=== PATIENT | female | born 1975 | race Caucasian/White ===

== ENCOUNTER 2024-01-09 01:00 | Emergency (ER) | payer BC, SELFPAY ==
--- NOTE | ~2024-01-09 | XR_ITS ---
EXAMINATION: XR SHOULDER, RIGHT CLINICAL INFORMATION: Atraumatic pain COMPARISON: None available. TECHNIQUE: AP, Grashey, transscapular views of the right shoulder. FINDINGS: This dystrophic amorphous calcification is present in the expected location of the distal supraspinatus tendon adjacent to the greater tuberosity. The humeral and acromioclavicular joint space and alignment are normal in appearance. Normal appearance of visualized right ribs and lung. XR/XR shoulder RT min 2V IMPRESSION: Chronic calcific tendinosis of the supraspinatus tendon of the right shoulder rotator cuff. Electronically signed by: Cheo Tavera MD 01/09/2024 02:41 AM EDT
--- NOTE | 2024-01-09 01:30 | ED_ITS ---
HPI - Extremity Problem General Chief complaint: Extremity Problem Stated complaint: shoulder pain Time Seen by Provider: 01/09/24 01:28 Source: patient Mode of arrival: ambulatory Limitations: no limitations History of Present Illness ED Provider: allison HPI Narrative: Patient with no history of arthritis or any injury to the right shoulder does not remember any lifting heavy stuff noticed pain in the right shoulder a month ago unable to raise her hand because of pain seen In the urgent care advised rotator cuff exercises patient comes here as pain is still not getting better Related Data Previous Rx's ?Medication ?Instructions ?Recorded oxycodone 5 mg tablet 5 mg PO Q6H PRN pain #20 tabs 01/09/24 prednisone 20 mg tablet 40 mg (2 x 20 mg) PO DAILY #10 tabs 01/09/24 Allergies Allergy/AdvReac Type Severity Reaction Status Date / Time No Known Allergies Allergy Verified 01/09/24 01:39 [No Known Allergies*] Review of Systems 2 Review of Systems: Yes all other systems are reviewed and are negative [facility] Social History Social History Advance Directives: No Advance Directives Information Provided: No Physical Exam 2 Vital Signs: Vital Signs: Last Vital Signs Temp 98.4 F 01/09/24 01:37 Pulse 74 01/09/24 01:37 Resp 16 01/09/24 01:37 BP 122/74 01/09/24 01:37 Pulse Ox 97 01/09/24 01:37 O2 Del Method Room Air 01/09/24 01:37 BMI result Body Mass Index 32.6 Appearance: Alert. Oriented X3. No acute distress. Neck: Normal inspection. Neck supple. CVS: Normal heart rate and rhythm. Pulses normal. Respiratory: No respiratory distress. Equal air entry bilateral, Abdomen: Soft and nontender. Bowel sounds are present, Skin: Skin warm and dry. Normal skin color. Normal skin turgor. Extremities: No lower extremity edema. No calf tenderness right arm diffuse tenderness. Acromial area and rotator cuff muscles painful to abduct painful to do internal rotation or external rotation of the right shoulder Neuro: Oriented X 3. No motor deficit. Extrem: Shoulder/upper arm images: 1. Subacromial tenderness no erythema neurovascular intact painful external rotation and abduction of the right shoulder Medical Decision Making Medical Decision Making MDM Narrative: Patient's right shoulder pain for about a month clinically patient has a rotator cuff tendinitis will give a sling x-ray negative for any fracture plan to see orthopedic Differential Diagnosis Differential Diagnoses: The differential diagnosis associated with the presentation includes Impingement syndrome/rotator cuff tendinitis Independent Interpretation I performed an independent interpretation of an: Plain X-Ray Interpretation: Calcium deposits in the tendons Discharge Plan Discharge Clinical Impression: Right rotator cuff tendinitis Patient Disposition: Home, Self-Care Instructions: Rotator Cuff Tendinitis (ED), Shoulder Manipulation (DC) Additional Instructions: Wear sling for support Pain medication and prednisone as prescribed Follow with Orthopedics for further evaluation Prescriptions: New prednisone 20 mg tablet 40 mg PO DAILY Qty: 10 0RF oxycodone 5 mg tablet 5 mg PO Q6H PRN (Reason: pain) Qty: 20 0RF Rx Instructions: Partial Fill upon patient request. Stand Alone Forms: Work/School Release Print Language: Surinamese
[2024-01-09 01:37] VITALS: BP 122/74; PULSE 74; RESP 16; TEMP 36.9; O2SAT 97; BMI 32.6
--- OUTSIDE RECORDS SUMMARY | 2024-01-09 01:40 | XMS_ITS | Continuity of Care Document ---
Author Organization [facility] Address [address] [place] [address]- Care Team Providers Care Salesperson Children'S Shoes Name Role Phone Gonsalo SCOTT, Dana Primary Care Physician [id number] Date(s): 12/05/23 - 12/12/23 [facility] [address] [address]- Encounter Diagnosis Annual physical exam(Discharge Diagnosis) - 12/05/23 Seizure disorder(Discharge Diagnosis) - 12/05/23 Hyperlipidemia(Discharge Diagnosis) - 12/05/23 Attending Physician: Eb Macario MD Referring Physician: Dana Brush NP Allergies, Adverse Reactions, Alerts No Known Allergies Immunizations Given and Recorded Vaccine Date Status Refusal Reason SARS-CoV-2 (COVID-19) mRNA-1273 vaccine 12/18/20 R ecorded SARS-CoV-2 (COVID-19) mRNA-1273 vaccine 11/20/20 R ecorded Diphth/Pertussis,Acel/Tetanus (oldterm) 01/14/07 G iven Medications Keppra 750 mg oral tablet 2 tablet = 1,500 mg, By Mouth, 2 times a day, 1500 MG TWICE A DAY, # 120 tablet, 0 Refills, Maintenance, 05/17/17 18:05:54, Tablet Start Date: 05/17/17 Status: Ordered Problem List Diagnosis Diagnosis Type Effective Dates Health Status Clinical Service Informant Annual physical exam Discharge Diagnosis 12/05/23 Seizure disorder Discharge Diagnosis 12/05/23 Hyperlipidemia Discharge Diagnosis 12/05/23 Vital Signs Most recent to oldest [Reference Range]: 1 Height 162.00 cm (12/05/23 8:10 AM) Oxygen Saturation [94-100 %] 100 % (12/05/23 8:10 AM) Pulse Rate [55-90 bpm] 95 bpm *H* (12/05/23 8:10 AM) Blood Pressure [90-138/55-84 mm Hg] 129/ 89mm Hg (12/05/23 8:10 AM) Respiratory Rate [16-30 br/min] 15 br/mi n *L* (12/05/23 8:10 AM) Mode of Delivery (Oxygen) Room air (12/05/23 8:10 AM) Blood pressure sites Arm, right (12/05/23 8:10 AM) Weight Obtained Via Standing scale (12/05/23 8:10 AM) Dry Weight Obtained Via Standing scale (12/05/23 8:10 AM) Social History Social History Type Response Smoking Status Never (less than 100 in lifetime) entered on: 12/05/23 Sex Note * Mariela Ovalles: PERFORM Event Display: Patient Education/Instruction Authored Date: [id number] Ambulatory Adult Visit Summary [facility] [address] [address] Name: ABBE IVAN : 1975?? Visit: 12/05/2023 07:57?? Ambulatory Visit Instructions ?? Your Care Team Primary Care Provider Dana Brush NP? This Visit Provider Dana Brush NP Your Diagnosis Colon cancer screening Annual physical exam Seizure disorder Hyperlipidemia Vitals Signs Pulse Rate:??95 bpm??High Height: 162 cm Respiratory Rate:??15 br/min??Low ?? Systolic Blood Pressure: 129 mm Hg ?? Diastolic Blood Pressure:??89 mm Hg??High ?? Oxygen Saturation: 100 % ?? What to do next Future Orders MM Digital Mammo Screening, Routine, Reason for Exam: Screening, Conditional Orders: MM Diag/US Breast/Guided Asp/Breast Bx, Once, *Est. 12/05/23 Medications The list below reflects the information in our records and provided by you today along with any changes made during this visit. Please continue your medications until treatment is completed or stopped by your provider. If this is different from the information you have or there are other questions,please contact the prescribing provider. What How Much When Instructions Changed levETIRAcetam (Keppra 750 mg oral tablet) 2 tab(s) Oral Twice a day 1500 MG TWICE A DAY ? What How Much When Comments Stop Taking Acetaminophen (acetaminophen 325 mg oral tablet) 2 tab(s) Oral Every 4 hours as needed for as needed for pain Stop Taking Acetaminophen/ Butalbital/ Caffeine (Fioricet Tablet) 1 tab(s) Oral Every 4 hours as needed for Headache Stop Taking Al Hydroxide/ Mg Hydroxide/ Simethicone (Maalox Plus Liquid) 15 Milliliter Oral 4 times a day as needed for Dyspepsia Stop Taking Albuterol (ProAir HFA 90 mcg/ inh inhalation aerosol with adapter) 1 puff(s) Inhalation Every 6 hours as needed for for wheezing Stop Taking Bisacodyl (bisacodyl 10 mg rectal suppository) 1 suppository(ies) Per rectum Daily as needed for for constipation Stop Taking Divalproex Sodium (Depakote 250 mg oral enteric coated tablet) 1 tab(s) Oral Daily evening ?? Stop Taking Divalproex Sodium (Depakote 500 mg oral enteric coated tablet) 1 tab(s) Oral Daily in the morning Stop Taking Milk of Magnesia (Milk of Magnesia 8% oral suspension) 30 Milliliter Oral Daily at Bedtime as needed for for constipation Medications and Immunizations Administered Medications Given During Visit No medications given during this visit.?? Allergies (NKA means No Known Allergies) NKA No Known Medication Allergies Common Emergency Awareness Tips IS IT A STROKE? Act FAST and Check for these signs: FACE Does the face look uneven? ARM Does one arm drift down? SPEECH Does their speech sound strange? TIME Call at any sign of stroke ?? Heart Attack Signs Chest discomfort: Most heart attacks involve discomfort in the center of the chest and lasts more than a few minutes, or goes away and comes back. It can feel like uncomfortable pressure, squeezing, fullness or pain. Discomfort in upper body: Symptoms can include pain or discomfort in one or both arms, back, neck, jaw or stomach. Shortness of breath: With or without discomfort. Other signs: Breaking out in a cold sweat, nausea, or lightheaded. Remember, MINUTES DO MATTER. If you experience any of these heart attack warning signs, call to get immediate medical attention! ?? Smoking can increase your chances of developing chronic health problems and can cause harmful effects to other family members in your house. If you smoke, you are strongly encouraged to quit. Please call [facility] at [phone] or [phone] [employer] ([phone]) or log in to [email or web address] for referrals to smoking cessation programs. ?? The National Suicide Prevention Hotline is available 21/10 if you or someone you know needs to find a reason to keep living. By calling 2-066-943-[employer] (9569) you'll be connected to a skilled, trained counselor at a crisis center in your area. [facility] Focus Media Portal You can view and manage your care through the patient portal or by using a health care nitza of your choosing. [employer] is a website that allows you to securely view your medical information including your hospital discharge summary, office visit summaries, medications and follow-up visits. You can also request appointments, renew medications, and request access to your medical information using a health care nitza of your choosing, or just ask a question. You can enroll at [email or web address] or register during your next office visit. [facility], in keeping with [facility] guidance, no longer requires face masks for staff, patientsor visitors in most situations. Similiar to time spent indoors at other locations, there is the chance that you were exposed to repiratory viruses during your time with us (such as flu or COVID-19). If you develop symptoms concerning for a viral respiratory infection, please seek testing (and treatment if indicated) from your medical provider or home test kit. ?? Disclaimer: The information provided is of a general nature and is intended to be used in conjunction with the recommendations and advice of your health care practitioner. Every effort has been made to ensure that the information provided is accurate and complete at the time it is provided to you however, as your needs change, or, as new information becomes available, different or additional instructions may be required. ?? If you have questions, please consult with your primary care provider or pharmacist, as appropriate. This information is not intended to serve as substitution for assessment and evaluation by a qualified health care provider. If you do not have a primary care provider, you may find a [facility] provider by calling [facility] at [phone]. Patient Care team information Care Team Personnel Name: Dana Brush NP Position: [facility] PCO Associate Professional Member Role: PCP Address: Address: [address] [place] [phone]- Care Team Related Persons Name: FELICIA IVAN Address: home [address] [place] [address] Name: KENAN TANNER Address: home [address] [place] [address]
--- OUTSIDE RECORDS SUMMARY | 2024-01-09 01:40 | XMS_ITS | Continuity of Care Document ---
Author Organization [facility] Address [address] [place] [address]- Care Team Providers Care Double End Sewer Name Role Phone Dana Brush NP Primary Care Physician Encounter 12/30/23 - 01/06/24 [facility] [address] [place] [address]- Attending Physician: Dana Brush NP Admitting Physician: Dana Brush NP Referring Physician: Dana Brush NP Allergies, Adverse [...] 18:05:54, Tablet Start Date: 05/17/17 Status: Ordered Results Radiology Reports * Exam Date Time Procedure Performing Provider Status 12/30/23 4:11 PM MM Digital Mammo Screening Nathaly Alvarado; Auth (Verified) Notes: (MM Digital Mammo Screening) Reason For Exam: Screening RESULT: MM Digital Mammo Screening PROCEDURE: MM Digital Mammo Screening INDICATION: Screening for breast cancer. No known palpable abnormalities. COMPARISON: None TECHNIQUE: Full-field digital CC and MLO 3D tomosynthesis images of both breasts were acquired. Computer-aided detection (CAD) was utilized in the interpretation of this study. DENSITY: There are scattered areas of fibroglandular density. FINDINGS: There are 2 clusters of microcalcifications in the mid right breast, both seen more clearly in the cc view than the MLO projection. No architectural distortion. No suspicious findings are seen in the left breast. IMPRESSION: There is no worrisome mass. There is no architectural distortion. There are 2 clusters of microcalcifications in the right breast. CC and ML spot magnification 2-D images are recommended for further evaluation. We will recall the patient. RECOMMENDATION: Right diagnostic mammogram BI-RADS: 0 Incomplete - Need Additional Imaging Evaluation. Lay letter mailed to patient I have personally reviewed the images and I agree with this report. WSN: [id number] Ordering Physician: Dana Brush Dictated By: Tracy Davies DO Dictated Date/Time: 12/31/23 11:11 am Reviewed By: Kyle Slade MD Signed By: Kyle Slade MD Signed Date/Time: 12/31/23 11:16 am Transcribed By: SARAH Exhibition Organiser Date/Time: 12/31/23 10:14 am Birads: Social History Social History Type Response Smoking Status Never (less than 100 in lifetime) entered on: 12/05/23 Sex Patient Care team information Care Team Personnel Name: Dana Brush NP Position: [facility] PCO Associate Professional Member Role: PCP Address: Address: [address] [place] [address]- Care Team Related Persons Name: FELICIA IVAN Address: home [address] [place] [address] Name: KENAN TANNER Address: home [address] [place] [address]
--- OUTSIDE RECORDS SUMMARY | 2024-01-09 01:40 | XMS_ITS | Continuity of Care Document ---
Author Organization [facility] Address [address] [place] [address]- Care Team Providers Care Strip Deburrer Name Role Phone Dana Brush NP Primary Care Physician Encounter [facility] Date(s): 12/05/23 - 01/04/[address] [address]- Attending Physician: AdmMike wong Admitting Physician: Admtr, Ar8 Referring Physician: Admtr, Ar8 Allergies, Adverse Reactions, Alerts No Known Allergies [...] 18:05:54, Tablet Start Date: 05/17/17 Status: Ordered Social History Social History Type Response Smoking Status Never (less than 100 in lifetime) entered on: 12/05/23 Sex Laboratory * Event Display: Non BH Lab Results Authored Date: [id number] * Kaitlin Palma: PERFORM Event Display: Laboratory Results Scanned Authored Date: [id number] Patient Care team information Care Team Personnel Name: Dana Brush NP Position: [facility] PCO Associate Professional Member Role: PCP Address: Address: [address] [place] [address] [place] [address]- [place] Care Team Related Persons Name: MARZENAFELICIA Address: home [address] [place] [address] Name: KENAN TANNER Address: home [address] [place] [address]
--- OUTSIDE RECORDS SUMMARY | 2024-01-09 01:40 | XMS_ITS | Continuity of Care Document ---
Author Organization [facility] Address [address] [place] [id number]- Care Team Providers Care Antisqueak Chalker Name Role Phone Not on Staff, PCP Primary Care Physician Unavail able Encounter [facility] NBR [id number] Date(s): 10/08/23 - 11/07/23 [facility] [address] [place], [place] [id number]- Allergies, Adverse Reactions, Alerts No Known Allergies Immunizations Given and Recorded Vaccine Date Status Refusal Reason Diphth/Pertussis,Acel/Tetanus (oldterm) 01/14/07 G iven Medications acetaminophen 325 mg oral tablet 650 mg, 2, tablet, By Mouth, Every 4 hours, PRN, # 12 tablet, Refills 0, Maintenance, as needed forpain, 05/07/17 14:58:14 Start Date: 05/07/17 Status: Ordered bisacodyl 10 mg rectal suppository 1 supp = 10 mg, Rectally, Daily, PRN for constipation, # 10 supp, 0 Refills, Maintenance, 05/07/17 14:57:35, Suppository Start Date: 05/07/17 Status: Ordered Depakote 250 mg oral enteric coated tablet 1 tablet = 250 mg, By Mouth, Daily, evening, 0 Refills, Maintenance, 05/07/17 14:59:17 Start Date: 05/07/17 Status: Ordered Depakote 500 mg oral enteric coated tablet 1 tablet = 500 mg, By Mouth, Daily in AM, 0 Refills, Maintenance, 05/07/17 14:58:58 Start Date: 05/07/17 Status: Ordered Fioricet Tablet 1 tablet, By Mouth, Every 4 hours, PRN Headache, 0 Refills, Maintenance, 05/07/17 15:00:04 Start Date: 05/07/17 Status: Ordered Keppra 750 mg oral tablet 2 tablet = 1,500 mg, By Mouth, 2 times a day, 1500 MG TWICE A DAY, # 120 tablet, 0 Refills, Maintenance, 05/17/17 18:05:54, Tablet Start Date: 05/17/17 Status: Ordered Keppra Tablet 2 times a day, 0 Refills, Maintenance Start Date: 09/04/09 Status: Ordered Maalox Plus Liquid 15 mL, By Mouth, 4 times a day, PRN Dyspepsia, 0 Refills, Maintenance, 05/07/17 14:57:47, Suspension Start Date: 05/07/17 Status: Ordered Milk of Magnesia 8% oral suspension 30 mL = 2.4 Gm, By Mouth, Daily at bedtime, PRN for constipation, # 300 mL, 0 Refills, Maintenance,05/07/17 14:57:24, Suspension Start Date: 05/07/17 Status: Ordered ProAir HFA 90 mcg/inh inhalation aerosol with adapter 1 puffs, Inhalation, Every 6 hours, PRN for wheezing, # 8.5 Gm, 1 Refills, Maintenance, Aerosol Start Date: 04/23/12 Status: Ordered Patient Care team information Care Team Personnel Name: Not on Staff, PCP Position: [facility] Physician (General Medicine) Member Role: PCP Care Team Related Persons Name: FELICIA IVAN Address: [address] [place] [address] Name: KENAN TANNER Address: [address] [address]
[2024-01-09] MEDS: dexAMETHasone 2 MG TABLET 10 MG PO (02:15)
--- NOTE | 2024-01-09 02:20 | MHC.EDTECH ---
This tech applied a sling to patient's right arm per providers order,patient tolerated well,patient is waiting to be discharged at this time
[2024-01-09 02:22] VITALS: BP 122/74; PULSE 74; RESP 16; TEMP 36.9; O2SAT 97
== END 2024-01-09 02:23 | disposition home or self-care (01) ==
PROVIDERS: Emergency Provider Internal Medicine
DX: M75.101 Unspecified rotator cuff tear or rupture of right shoulder, not specified as traumatic (principal); M25.511 Pain in right shoulder
CPT/HCPCS: 73030; 99283; J8540